=== PATIENT | female | born 1960 | race Asian ===

== ENCOUNTER 2022-12-02 14:33 | Emergency (ER) | payer OTHER ==
[2022-12-02] MEDS ORDERED: SODIUM CHLORIDE 0.9% 1,000 ML IV STA (17:08)
--- NOTE | 2022-12-02 17:11 | ED Physician Documentation ---
History of Present Illness - Stated complaint Stated Complaint: BODYACHES,CAMPBELL - Chief complaint Chief Complaint: General - History obtained from History obtained from: Patient, Family - History of Present Illness Timing: How many weeks ago (1) Pain level max: 0 Pain level now: 0 - Additonal information Additional information: 62-year-old female presents to the emergency department complaint of generalized malaise x1 week. Occasional chills. She states that she attempted [id number] medication without relief. She thought that she may have a bladder infection and took Azo. She states she has continued to feel tired and fatigued. She was seen at the walk-in clinic few days ago, negative COVID test. They told her she could be dehydrated and recommended she go to the ER if she does not feel better. Patient states she has not seen her primary care doctor in several years. She denies any medical history. She does smoke cigarettes and drinks about 4 beers per day. No abdominal pain. Did have vomiting last week, none this week. No cough. mild congestion. Review of Systems Constitutional: reports: Chills Ears: denies: Ear pain Throat: denies: Sore throat Respiratory: denies: Dyspnea, Wheezing GI: denies: Abdominal Pain, Diarrhea, Hematemesis, Bloody / black stool : reports: Dysuria (last week), Frequency Skin: denies: Rash Musculoskeletal: denies: Neck pain, Back pain Neurologic: denies: Headache PD PAST MEDICAL HISTORY - Past Medical History Past Medical History: No - Past Surgical History Past Surgical History: No - Present Medications Home Medications: Ambulatory Orders Medication Instructions Recorded Confirmed Cefdinir 300 mg PO BID #20 cap 12/02/22 - Allergies Allergies/Adverse Reactions: Allergies Allergy/AdvReac Type Severity Reaction Status Date / Time No Known Drug Allergies Allergy Verified 12/02/22 14:38 - Living Situation Living Situation: reports: With family Living Arrangement: reports: At home - Social History Does the pt smoke?: Yes Smoking Status: Current every day smoker Does the pt drink ETOH?: Yes - Family History Family history: reports: Non contributory PD ED PE NORMAL - Vitals Vital signs reviewed: Yes - General General: Alert and oriented X 3, No acute distress - HEENT HEENT: Ears normal, Moist mucous membranes, Pharynx benign - Neck Neck: Supple, no meningeal sign - Cardiac Cardiac: RRR, Strong equal pulses - Respiratory Respiratory: No respiratory distress, Clear bilaterally - Abdomen Abdomen: Soft, Non tender, Non distended - Back Back: No CVA TTP, No spinal TTP - Derm Derm: Warm and dry, No rash - Extremities Extremities: No edema, No calf tenderness / cord - Neuro Neuro: Alert and oriented X 3 - Psych Psych: Normal mood, Normal affect Results - Vitals Vitals: Vital Signs - 24 hr 12/02/22 12/02/22 12/02/22 14:38 18:17 19:41 Temperature 36.5 C 36.7 C Heart Rate 110 H 83 81 Respiratory 16 18 19 Rate Blood Pressure 160/80 H 134/68 H 128/64 O2 Saturation 98 98 100 Oxygen O2 Source Room air - Labs Labs: Laboratory Tests 12/02/22 12/02/22 12/02/22 16:26 17:31 17:57 WBC 14.5 H RBC 4.85 Hgb 14.3 Hct 42.4 MCV 87.4 MCH 29.5 MCHC 33.7 RDW 12.6 Plt Count 480 H MPV 10.0 Neut # (Auto) 12.1 H Lymph # (Auto) 1.4 L [place] # (Auto) 0.8 Eos # (Auto) 0.1 Baso # (Auto) 0.1 Absolute Nucleated RBC 0.00 Nucleated RBC % 0.0 Sodium 132 L Potassium 3.4 L Chloride 100 L Carbon Dioxide 22 Anion Gap 10.0 BUN 18 Creatinine 0.9 Estimated GFR (MDRD) 64 L Glucose 92 Calcium 8.4 L Total Bilirubin 0.9 AST 73 H ALT 137 H Alkaline Phosphatase 180 H Total Protein 7.1 Albumin 2.8 L Globulin 4.3 H Albumin/Globulin Ratio 0.7 L Lipase 39 Urine Color Urine Clarity Urine pH Ur Specific [place] Urine Protein Urine Glucose (UA) Urine Ketones Urine Occult Blood Urine Nitrite Urine Bilirubin Urine Urobilinogen Ur Leukocyte Esterase Urine RBC Urine WBC Ur Squamous Epith Cells Urine Bacteria Ur Microscopic Review Urine Culture Comments Nasal Adenovirus (PCR) NOT DETECTED Nasal B. parapertussis DNA (PCR) NOT DETECTED Nasal Coronavir 229E PCR NOT DETECTED Nasal Coronavir HKU1 PCR NOT DETECTED Nasal Coronavir NL63 PCR NOT DETECTED Nasal Coronavir OC43 PCR NOT DETECTED Nasal Enterovir/Rhinovir PCR NOT DETECTED Nasal Influenza B PCR NOT DETECTED Nasal Influenza A PCR NOT DETECTED Nasal Parainfluen 1 PCR NOT DETECTED Nasal Parainfluen 2 PCR NOT DETECTED Nasal Parainfluen 3 PCR NOT DETECTED Nasal Parainfluen 4 PCR NOT DETECTED Nasal RSV (PCR) NOT DETECTED Nasal B.pertussis DNA PCR NOT DETECTED Nasal C.pneumoniae (PCR) NOT DETECTED Nicholas Human Metapneumo PCR NOT DETECTED Nasal M.pneumoniae (PCR) NOT DETECTED Nasal SARS-CoV-2 (PCR) NOT DETECTED 12/02/22 18:27 WBC RBC Hgb Hct MCV MCH MCHC RDW Plt Count MPV Neut # (Auto) Lymph # (Auto) [place] # (Auto) Eos # (Auto) Baso # (Auto) Absolute Nucleated RBC Nucleated RBC % Sodium Potassium Chloride Carbon Dioxide Anion Gap BUN Creatinine Estimated GFR (MDRD) Glucose Calcium Total Bilirubin AST ALT Alkaline Phosphatase Total Protein Albumin Globulin Albumin/Globulin Ratio Lipase Urine Color DARK YELLOW Urine Clarity HAZY Urine pH 6.0 Ur Specific [place] 1.010 Urine Protein TRACE Urine Glucose (UA) NEGATIVE Urine Ketones 15 H Urine Occult Blood LARGE H Urine Nitrite NEGATIVE Urine Bilirubin NEGATIVE Urine Urobilinogen 1 (NORMAL) Ur Leukocyte Esterase LARGE H Urine RBC TNTC H Urine WBC >25 H Ur Squamous Epith Cells FEW Squamous Urine Bacteria Moderate H Ur Microscopic Review INDICATED Urine Culture Comments INDICATED Nasal Adenovirus (PCR) Nasal B. parapertussis DNA (PCR) Nasal Coronavir 229E PCR Nasal Coronavir HKU1 PCR Nasal Coronavir NL63 PCR Nasal Coronavir OC43 PCR Nasal Enterovir/Rhinovir PCR Nasal Influenza B PCR Nasal Influenza A PCR Nasal Parainfluen 1 PCR Nasal Parainfluen 2 PCR Nasal Parainfluen 3 PCR Nasal Parainfluen 4 PCR Nasal RSV (PCR) Nasal B.pertussis DNA PCR Nasal C.pneumoniae (PCR) Nicholas Human Metapneumo PCR Nasal M.pneumoniae (PCR) Nasal SARS-CoV-2 (PCR) - Rads (name of study) cxr Relevant Findings:: Final report received, See rad report PD Medical Decision Making - ED course Complexity details: reviewed results, re-evaluated patient, considered differential, d/w patient, d/w family ED course: Patient is well-appearing, nontoxic. Afebrile. No hypoxia. No respiratory distress. CBC shows a leukocytosis, 14,500. Chemistry shows a mild hyponatremia, does have elevation of her liver enzyme test, AST 73, ALT 137, alk phos 180. Urinalysis is consistent with UTI, there are white blood cells and bacteria present. Respiratory PCR is negative. Chest x-ray does not show any acute abnormalities. Given IV Rocephin. We will prescribe oral antibiotics for home. We will have her follow-up with a local primary care provider to have her liver function test rechecked and for her normal routine care. Tolerating p.o. without difficulty here. Ambulating without difficulty. No dyspnea. Patient counseled regarding signs and symptoms for which I believe and urgent re- evaluation would be necessary. Patient with good understanding of and agreement to plan and is comfortable going home at this time This document was made in part using voice recognition software. While efforts are made to proofread this document, sound alike and grammatical errors may occur. Departure - Departure Disposition: Home, Self Care Clinical Impression: Elevated liver function tests UTI (urinary tract infection) Qualifiers: Urinary tract infection type: acute cystitis Hematuria presence: without hematuria Qualified Code(s): N30.00 - Acute cystitis without hematuria Condition: Good Instructions: ED UTI Cystitis Female Follow-Up: [facility]] [facility]Provider [facility]] [facility] [Provider Group] Prescriptions: Cefdinir 300 mg PO BID #20 cap Comments: Please follow-up with a primary care provider. Please return if you worsen. You do have a bladder infection and were given a dose of IV antibiotics today. You also have elevation of your liver function test. It is important that these be rechecked with your doctor to ensure that they are returning to normal, if they do not you will need further testing with your doctor. Discharge Date/Time: 12/02/22 19:46
[2022-12-02 17:32] LABS: B. PARAPERTUSSIS- RESP PCR PAN NOT DETECTED; B. PERTUSSIS- RESP PCR PANEL NOT DETECTED; C. PNEUMONIAE- RESP PCR PANEL NOT DETECTED; CORONAVIRUS 229E-RESP PCR NOT DETECTED; CORONAVIRUS HKU1-RESP PCR NOT DETECTED; CORONAVIRUS NL63-RESP PCR NOT DETECTED; CORONAVIRUS OC43-RESP PCR NOT DETECTED; HUMAN METAPNEUMOVIRUS NOT DETECTED; INFLUENZA A- RESP PCR PANEL NOT DETECTED; INFLUENZA B - RESP PCR PANEL NOT DETECTED; M. PNEUMONIAE- RESP PCR PANEL NOT DETECTED; PARAINFLUENZA VIRUS 1 NOT DETECTED; PARAINFLUENZA VIRUS 2 NOT DETECTED; PARAINFLUENZA VIRUS 3 NOT DETECTED; PARAINFLUENZA VIRUS 4 NOT DETECTED; RHINOVIRUS/ENTEROVIRUS NOT DETECTED; RSV- RESP PCR PANEL NOT DETECTED; SARS-CoV-2 -RESP PCR PANEL NOT DETECTED
[2022-12-02 17:36] LABS: BASOPHILS # (AUTO) 0.1 10^3/uL (0.0-0.1); BASOPHILS % (AUTO) 0.5 %; EOSINOPHILS # (AUTO) 0.1 10^3/uL (0.0-0.7); EOSINOPHILS % (AUTO) 0.7 %; HCT - HEMATOCRIT 42.4 % (37.0-47.0); HGB - HEMOGLOBIN 14.3 g/dL (12.0-16.0); LYMPHOCYTES # (AUTO) 1.4 10^3/uL (1.5-3.5); LYMPHOCYTES % (AUTO) 9.6 %; MEAN CORPUSCULAR HEMOGLOBIN 29.5 pg (27.0-31.0); MEAN CORPUSCULAR HGB CONC 33.7 g/dL (32.0-36.0); MEAN CORPUSCULAR VOLUME 87.4 fL (81.0-99.0); MONOCYTES # (AUTO) 0.8 10^3/uL (0.0-1.0); MONOCYTES % (AUTO) 5.3 %; NEUTROPHILS # (AUTO) 12.1 10^3/uL (1.5-6.6); NEUTROPHILS % (AUTO) 83.1 %; PLT - PLATELET COUNT 480 10^3/uL (130-450); RED BLOOD COUNT 4.85 10^6/uL (4.20-5.40); RED CELL DISTRIBUTION WIDTH 12.6 % (12.0-15.0); WHITE BLOOD COUNT 14.5 x10^3/uL (4.8-10.8)
--- NOTE | 2022-12-02 17:57 | XRAY Report ---
PROCEDURE: Chest 2 View X-Ray INDICATIONS: cough TECHNIQUE: 2 views of the chest were acquired. COMPARISON: None. FINDINGS: Surgical changes and devices: None. Lungs and pleura: No pleural effusions or pneumothorax. Lungs are clear. Mediastinum: Mediastinal contours appear normal. Heart size is normal. Bones and chest wall: No suspicious bony lesions. Overlying soft tissues appear unremarkable. IMPRESSION: No acute cardiopulmonary process. Reviewed by: Marvin Medina MD on 12/02/2022 5:55 PM PDT Approved by: Marvin Medina MD on 12/02/2022 5:55 PM PDT Station ID: [id number]
[2022-12-02 18:15] LABS: ALBUMIN 2.8 g/dL (3.2-5.5); ALBUMIN/GLOBULIN RATIO 0.7 (1.0-2.2); BILIRUBIN,TOTAL 0.9 mg/dL (0.2-1.0); CALCIUM 8.4 mg/dL (8.5-10.3); CREATININE 0.9 mg/dL (0.4-1.0); POTASSIUM 3.4 mmol/L (3.5-5.0); TOTAL PROTEIN 7.1 g/dL (6.7-8.2)
[2022-12-02 18:42] LABS: BILIRUBIN,URINE NEGATIVE (NEGATIVE); GLUCOSE, URINE (UA) NEGATIVE (NEGATIVE); KETONES,URINE (UA) 15 mg/dL (NEGATIVE); LEUKOCYTE ESTERASE, URINE LARGE (NEGATIVE); NITRITE,URINE NEGATIVE (NEGATIVE); OCCULT BLOOD,URINE LARGE (NEGATIVE); PROTEIN,URINE TRACE mg/dL (NEGATIVE); UROBILINOGEN,URINE 1 (NORMAL) E.U./dL (NORMAL)
[2022-12-02 18:45] LABS: CLARITY,URINE HAZY (CLEAR)
[2022-12-02 18:54] LABS: BACTERIA,URINE Moderate /HPF (None Seen); RBC,URINE TNTC /HPF (0-5); SQUAMOUS EPITHELIAL CELL,UR FEW Squamous (<= Few); WBC,URINE >25 /HPF (0-5)
[2022-12-02] MEDS ORDERED: cefTRIAXone 1 GM VIAL IVP STA (19:22)
[2022-12-02 19:42] VITALS: BP 128/64
== END 2022-12-02 19:46 | disposition home or self-care (01) ==
LOC: ED 14:33
DX: N30.00 Acute cystitis without hematuria (principal); R94.5 Abnormal results of liver function studies; F17.200 Nicotine dependence, unspecified, uncomplicated; Z20.822 Contact with and (suspected) exposure to COVID-19
CPT/HCPCS: 36415; 80053; 81001; 81003; 83690; 85025; 87077; 87086; 87181; 87633; 96361; 96374; 99284

== ENCOUNTER 2023-03-05 13:34 | Outpatient (CLI) | payer OTHER ==
--- NOTE | 2023-03-05 20:58 | CT Report ---
PROCEDURE: Low Dose Lung Cancer Screen INDICATIONS: SMOKER TECHNIQUE: A CT scan of the chest was performed. Intravenous contrast media was not administered. Images were re corded and evaluated at appropriate window settings. Reformats: axial MIP of the chest, coronal and s agittal. For radiation dose reduction, the following was used: automated exposure control, adjustment of mA and/or kV according to patient size. COMPARISON: Chest radiograph dated 12/02/2022 FINDINGS: Image quality: Excellent. Prior cancer history: Unsure. Lungs and pleura: No pleural effusions. No pneumothorax. No suspicious pulmonary nodules which requi re follow up. Mild upper lobe predominant pulmonary emphysematous changes. Mediastinum: Heart size is normal. Scattered atherosclerotic calcifications of the coronary arteries. Atherosclerosis of the aortic arch. No pericardial effusion. No large vessel abnormality. No mediast inal adenopathy by size criteria. Chest wall and lower neck: Thyroid is unremarkable. No axillary or supraclavicular adenopathy by size . Bones: No aggressive osseous abnormality. Upper Abdomen: Unremarkable. IMPRESSION: CT chest without acute cardiopulmonary abnormalities. Mild upper lobe predominant pulmona ry emphysema. No suspicious pulmonary nodules. Lung RAD: 1 - Negative. Recommendation: Continue annual screening in 12 Months with LDCT Non-Lung Significant Findings: Coronary Arterial Calcification - Moderate or Severe. Reviewed by: Lamine Moran MD on 03/05/2023 7:57 PM HALLIE Approved by: Lamine Moran MD on 03/05/2023 7:57 PM HALLIE Station ID: [id number]
== END 2023-03-05 13:35 | disposition home or self-care (01) ==
LOC: DI 13:34
PROVIDERS: ATTEND Physician Assistant
DX: Z12.2 Encounter for screening for malignant neoplasm of respiratory organs (principal); F17.210 Nicotine dependence, cigarettes, uncomplicated; J43.9 Emphysema, unspecified

== ENCOUNTER 2023-06-03 10:57 | Day surgery (SDC) | payer OTHER ==
[2023-06-03] MEDS ORDERED: LACTATED RINGERS 1,000 ML IV ONE ×2 (11:06→13:42)
[2023-06-03] MEDS ORDERED: BUPIVACAINE 0.25% PF 30 ML VIAL ONE (12:01)
[2023-06-03] MEDS ORDERED: LIDOCAINE 1%-EPI 1:100000 20 ML MDV ONE (12:01)
[2023-06-03] MEDS ORDERED: ATROPINE ABBOJECT 1 MG/10 ML SYRINGE IVP PRN (12:04)
[2023-06-03] MEDS ORDERED: NALOXONE 0.4 MG/ML VIAL IVP PRN (12:04)
[2023-06-03] MEDS ORDERED: HYDROmorphone 0.5 MG/0.5 ML SYRINGE IVP PRN (12:04)
[2023-06-03] MEDS ORDERED: ONDANSETRON 4 MG/2 ML VIAL IVP PRN ×2 (12:04→13:53)
[2023-06-03] MEDS ORDERED: ePHEDrine 50 MG/ML VIAL IVP PRN (12:04)
[2023-06-03] MEDS ORDERED: fentaNYL 100 MCG/2 ML VIAL IVP PRN (12:04)
--- NOTE | 2023-06-03 12:04 | ANESTHESIA ---
Pre-Anesthesia VS, & Labs - Diagnosis vulva cancer - Procedure portacath Height: 5 ft 2 in Weight (kg): 49 kg Body Mass Index: 19.8 BMI Classification: Normal - NPO >8 hours - Is Patient ?: No - Lab Results Lab results reviewed: Yes Home Medications and Allergies Lidocaine/Prilocain 2.5% Cream [Emla 2.5% Cream] 1 applic TOP PRN PRN 06/03/23 Ondansetron HCl 4 mg PO Q4H PRN 06/03/23 Prochlorperazine Maleate [Compazine] 10 mg PO Q4H PRN 06/03/23 Allergies/Adverse Reactions: Allergies Allergy/AdvReac Type Severity Reaction Status Date / Time No Known Drug Allergies Allergy Verified 05/26/23 16:41 Anes History & Medical History - Anesthetic History Anesthesia Complications: reports: No previous complications Family history of Anesthesia Complications: Denies - Medical History Cardiovascular: reports: None Pulmonary: reports: None Gastrointestinal: reports: None Urinary: reports: None Neuro: reports: None Musculoskeletal: reports: None Endocrine/Autoimmune: reports: None Blood Disorders: reports: None Skin: reports: None Smoking Status: Current every day smoker Psychosocial: reports: Cannabis History of Cancer?: Yes - Surgical History Gynecologic: reports: Other Dermatologic: reports: Other Exam General: Alert, Oriented x3, Cooperative Dental: Dentures full Upper, Dentures full Lower Mouth Openin Fingerbreadth Neck Mobility: Normal Mallampati classification: II Thyromental Distance: 4-6 cm Respiratory: Lungs clear Cardiovascular: Regular rate Plan Anesthesia Type: General, MAC Consent for Procedure(s) Verified and Reviewed: Yes Code Status: Attempt Resuscitation ASA classification: 3-Severe systemic disease Is this case an emergency?: No
[2023-06-03] MEDS ORDERED: PROPOFOL 500 MG/50 ML 500 MG/50 ML VIAL ONE (12:16)
--- NOTE | 2023-06-03 12:40 | HISTORY & PHYSICAL EXAMINATION ---
Chief Complaint - Chief Complaint Chief Complaint: here for port placement History of Present Illness - History Obtained From Records Reviewed: yes History obtained from: pt Exam Limitations: none - History of Present Illness HPI Comment/Other: history cancer vulva. chemotherapy and port recommended History - Past Medical History Cardiovascular: reports: None Respiratory: reports: None Neuro: reports: None Endocrine/Autoimmune: reports: None GI: reports: None : reports: None HEENT: reports: Glaucoma Psych: reports: None Musculoskeletal: reports: None Derm: reports: None MRSA Hx?: Yes - Past Surgical History /DISINTEGRATOR: reports: Other Derm: reports: Other - Family & Social History Living Situation: With family Meds/Allgy - Home Medications Home Medications: Ambulatory Orders Medication Instructions Recorded Confirmed Cefdinir 300 mg PO BID #20 cap 12/02/22 06/03/23 oxyCODONE [Roxicodone] 5 mg PO Q4H PRN #180 tablet 05/25/23 06/03/23 Lidocaine/Prilocain 2.5% Cream 1 applic TOP PRN PRN 06/03/23 06/03/23 [Emla 2.5% Cream] Ondansetron HCl 4 mg PO Q4H PRN 06/03/23 06/03/23 Prochlorperazine Maleate 10 mg PO Q4H PRN 06/03/23 06/03/23 [Compazine] - Allergies Allergies/Adverse Reactions: Allergies Allergy/AdvReac Type Severity Reaction Status Date / Time No Known Drug Allergies Allergy Verified 05/26/23 16:41 Review of Systems - Other Findings Other Findings: 10 pt ros as above otherwise unremarkable Exam - Physical Exam General Appearance: positive: No acute distress, Alert Eyes Bilateral: positive: PERRL, EOMI ENT: positive: No signs of dehydration Neck: positive: No JVD, Trachea midline Respiratory: positive: No respiratory distress Cardiovascular: positive: Regular rate & rhythm Abdomen: positive: No distention Neurologic/Psychiatric: positive: Oriented x3 Conclusion/Plan - Problem List (1) Cancer of vulva Conclusion/Plan: plan port placement. parq held and consent obtained - Lab Results Lab results reviewed: Yes
[2023-06-03] MEDS ORDERED: MIDAZOLAM 2 MG/2 ML VIAL ONE (12:48)
[2023-06-03] MEDS ORDERED: fentaNYL 100 MCG/2 ML VIAL ONE (12:48)
[2023-06-03] MEDS ORDERED: LACTATED RINGERS 1,000 ML IV SCH (13:00)
[2023-06-03] MEDS ORDERED: ceFAZolin 1 GM VIAL ONE (13:03)
[2023-06-03] MEDS ORDERED: GLYCOPYRROLATE 1 MG/5 ML VIAL ONE (13:07)
[2023-06-03] MEDS ORDERED: SODIUM CHLORIDE 0.9% 100 ML BAG IV ONE (13:10)
[2023-06-03] MEDS ORDERED: BUPIVACAINE 0.25% PF 30 ML VIAL SUBQ ONE ×2 (13:10)
[2023-06-03] MEDS ORDERED: LIDOCAINE 1%-EPI 1:100000 20 ML MDV SUBQ ONE ×2 (13:11)
[2023-06-03 13:48] VITALS: O2SAT 100
[2023-06-03] MEDS ORDERED: HYDROcod/ACETAM 5/325 MG TABLET PO PRN (13:53)
--- NOTE | 2023-06-03 13:58 | OPERATIVE REPORT ---
Operative Report - General Procedure Date: 06/03/23 Planned Procedure: left subclavian power port placement Pre-Op Diagnosis: vulva cancer Procedure Performed: left subclavian power port placement fluoroscopic guidance - Procedure Note Primary Surgeon: rock xiao Anesthesia Technique: Local, MAC Estimated Blood Loss (mL): 2 Drain/Tube Type: Other (none) Indications: need for chemotherapy Findings: tip at svc/ atrium junction. good flush and flow Complications: none - Other Other Information/Narrative: The patient was properly identified brought to the operating room and placed in supine position. Monitored anesthesia care was given as well as IV sedation. A towel roll was placed under the upper back. The patient was prepped and draped in a sterile fashion and given preoperative antibiotics. Local anesthetic was given. The left subclavian vein was easily accessed second pass with a needle. Guide wire placed and position confirmed. A subcutaneous pocket on the left upper chest was created measuring approximately 2-1/2 cm. Portacatheter tubing was then placed subcutaneous up to the venous access point. The portacatheter tubing was then easily placed with the use of a dilator peel-away sheath. The tubing was aspirated and flushed with saline. Under fluoroscopic guidance the tubing was pulled back to the junction of the atrium and the superior vena cava. The portacatheter aspirated and flushed easily assuring good position. The portacatheter was then cut to size and further assembled. The port was secured to subcutaneous tissue with 2 interrupted 4-0 Prolene sutures. The port again was aspirated and flushed now with heparin. Buried interrupted subdermal 3-0 Vicryl sutures were then placed. Skin was closed with buried interrupted and running 4-0 Monocryl subcuticular suture. Dressing was applied. The patient tolerated the procedure well was awakened and brought to recovery in good condition.
--- NOTE | 2023-06-03 14:27 | XRAY Report ---
PROCEDURE: OR Port-A-Cath INDICATIONS: PORT-A-CATH PLACEMENT FLUORO TIME: 000.8 TECHNIQUE: Real time fluoroscopy was performed of the thorax. COMPARISON: None. FINDINGS: An intraoperative fluoroscopic image was obtained. A left sided catheter is present with tip likely p rojecting over the lower SVC. IMPRESSION: Intraprocedural fluoroscopy was provided for guidance and anatomic localization. Please see the proc edure report for further details. Reviewed by: Marvin Swenson MD on 06/03/2023 2:26 PM PDT Approved by: Marvin Swenson MD on 06/03/2023 2:26 PM PDT Station ID: [id number]
[2023-06-03 14:44] VITALS: BP 170/68
--- NOTE | 2023-06-03 15:44 | ANESTHESIA POST OP EVALUATION ---
Anesthesia Post Eval - Post Anesthesia Eval Vitals: Last Vital Signs Temp 36.3 C L 06/03/23 14:30 Pulse 69 06/03/23 14:30 Resp 16 06/03/23 14:30 BP 170/68 H 06/03/23 14:30 Pulse Ox 100 06/03/23 14:30 O2 Flow Rate CV Function Including HR & BP: Stable Pain Control: Satisfactory Nausea & Vomiting: Negative Mental Status: Baseline Respiratory Status: Airway Patent Hydration Status: Satisfactory Anesthesia Complications: None
== END 2023-06-03 10:58 | disposition home or self-care (01) ==
LOC: SDS 10:57
PROVIDERS: ATTEND Surgery
DX: C51.9 Malignant neoplasm of vulva, unspecified (principal); F17.200 Nicotine dependence, unspecified, uncomplicated
CPT/HCPCS: 36561; C1788; J7120

== ENCOUNTER 2023-11-02 08:00 | Outpatient (CLI) | payer OTHER | END 2023-11-02 23:59 | disposition home or self-care (01) | LOC: PC 08:00 | PROVIDERS: ATTEND Nurse Practitioner Adult Health | DX: Z51.5 Encounter for palliative care (principal); G89.3 Neoplasm related pain (acute) (chronic); Z79.891 Long term (current) use of opiate analgesic; Z79.899 Other long term (current) drug therapy; R63.0 Anorexia; R53.1 Weakness; R63.4 Abnormal weight loss; R06.02 Shortness of breath; R32 Unspecified urinary incontinence; I10 Essential (primary) hypertension; R53.83 Other fatigue; K59.03 Drug induced constipation; T40.2X5A Adverse effect of other opioids, initial encounter; C51.9 Malignant neoplasm of vulva, unspecified; C77.8 Secondary and unspecified malignant neoplasm of lymph nodes of multiple regions; F17.200 Nicotine dependence, unspecified, uncomplicated | CPT/HCPCS: 99215 ==

== ENCOUNTER 2023-12-07 08:00 | Outpatient (CLI) | payer OTHER | END 2023-12-07 23:59 | disposition home or self-care (01) | LOC: PC 08:00 | PROVIDERS: ATTEND Nurse Practitioner Adult Health | DX: Z51.5 Encounter for palliative care (principal); G89.3 Neoplasm related pain (acute) (chronic); C51.9 Malignant neoplasm of vulva, unspecified; C77.4 Secondary and unspecified malignant neoplasm of inguinal and lower limb lymph nodes; C77.5 Secondary and unspecified malignant neoplasm of intrapelvic lymph nodes; M60.9 Myositis, unspecified; F17.200 Nicotine dependence, unspecified, uncomplicated; F41.9 Anxiety disorder, unspecified; R30.0 Dysuria; I10 Essential (primary) hypertension; R63.0 Anorexia; F32.A Depression, unspecified | CPT/HCPCS: 99215 ==

== ENCOUNTER → 2023-12-28 | Outpatient (CLI) | payer OTHER | LOC: PC 08:00 | PROVIDERS: ATTEND Nurse Practitioner Adult Health | DX: Z51.5 Encounter for palliative care (principal); G89.3 Neoplasm related pain (acute) (chronic); C51.9 Malignant neoplasm of vulva, unspecified; F41.9 Anxiety disorder, unspecified; C77.4 Secondary and unspecified malignant neoplasm of inguinal and lower limb lymph nodes; C79.51 Secondary malignant neoplasm of bone; N76.0 Acute vaginitis; F32.A Depression, unspecified; Z87.891 Personal history of nicotine dependence | CPT/HCPCS: 99215 ==

== ENCOUNTER 2024-01-04 08:00 | Outpatient (CLI) | payer OTHER | END 2024-01-04 23:59 | disposition home or self-care (01) | LOC: PC 08:00 | PROVIDERS: ATTEND Nurse Practitioner Adult Health | DX: Z51.5 Encounter for palliative care (principal); G89.3 Neoplasm related pain (acute) (chronic); C51.9 Malignant neoplasm of vulva, unspecified; C77.8 Secondary and unspecified malignant neoplasm of lymph nodes of multiple regions; Z51.81 Encounter for therapeutic drug level monitoring; F41.9 Anxiety disorder, unspecified; I10 Essential (primary) hypertension | CPT/HCPCS: 99215 ==

== ENCOUNTER 2024-01-18 08:00 | Outpatient (CLI) | payer OTHER | END 2024-01-18 23:59 | disposition home or self-care (01) | LOC: PC 08:00 | PROVIDERS: ATTEND Nurse Practitioner Adult Health | DX: Z51.5 Encounter for palliative care (principal); G89.3 Neoplasm related pain (acute) (chronic); N76.0 Acute vaginitis; Z79.60 Long term (current) use of unspecified immunomodulators and immunosuppressants; R33.9 Retention of urine, unspecified; F41.9 Anxiety disorder, unspecified | CPT/HCPCS: 99215 ==

== ENCOUNTER 2024-02-08 10:40 | Outpatient (CLI) | payer OTHER | END 2024-02-08 23:59 | disposition home or self-care (01) | LOC: PC 10:40 | PROVIDERS: ATTEND Nurse Practitioner Adult Health | DX: Z51.5 Encounter for palliative care (principal); C51.9 Malignant neoplasm of vulva, unspecified; C77.4 Secondary and unspecified malignant neoplasm of inguinal and lower limb lymph nodes; C77.5 Secondary and unspecified malignant neoplasm of intrapelvic lymph nodes; G89.3 Neoplasm related pain (acute) (chronic); R63.4 Abnormal weight loss; F41.9 Anxiety disorder, unspecified; M60.9 Myositis, unspecified; Z68.1 Body mass index [BMI] 19.9 or less, adult; Z79.899 Other long term (current) drug therapy | CPT/HCPCS: 99215 ==

== ENCOUNTER 2024-02-22 08:00 | Outpatient (CLI) | payer OTHER | END 2024-02-22 23:59 | disposition home or self-care (01) | LOC: PC 08:00 | PROVIDERS: ATTEND Nurse Practitioner Adult Health | DX: Z51.5 Encounter for palliative care (principal); G89.3 Neoplasm related pain (acute) (chronic); R19.7 Diarrhea, unspecified; C51.9 Malignant neoplasm of vulva, unspecified; C77.4 Secondary and unspecified malignant neoplasm of inguinal and lower limb lymph nodes; C77.5 Secondary and unspecified malignant neoplasm of intrapelvic lymph nodes; F41.9 Anxiety disorder, unspecified; R63.4 Abnormal weight loss; Z68.1 Body mass index [BMI] 19.9 or less, adult; Z71.89 Other specified counseling | CPT/HCPCS: 99215 ==

== ENCOUNTER 2024-02-29 09:15 | Outpatient (CLI) | payer OTHER | END 2024-02-29 23:59 | disposition home or self-care (01) | LOC: PC 09:15 | PROVIDERS: ATTEND Nurse Practitioner Adult Health | DX: Z51.5 Encounter for palliative care (principal); C51.9 Malignant neoplasm of vulva, unspecified; C77.4 Secondary and unspecified malignant neoplasm of inguinal and lower limb lymph nodes; C77.5 Secondary and unspecified malignant neoplasm of intrapelvic lymph nodes; R19.7 Diarrhea, unspecified; F41.9 Anxiety disorder, unspecified; G89.3 Neoplasm related pain (acute) (chronic); R63.4 Abnormal weight loss; Z68.1 Body mass index [BMI] 19.9 or less, adult | CPT/HCPCS: 99215 ==

== ENCOUNTER 2024-03-06 08:00 | Outpatient (CLI) | payer OTHER | END 2024-03-06 23:59 | disposition home or self-care (01) | LOC: PC 08:00 | PROVIDERS: ATTEND Nurse Practitioner Adult Health | DX: Z51.5 Encounter for palliative care (principal); C51.9 Malignant neoplasm of vulva, unspecified; C77.4 Secondary and unspecified malignant neoplasm of inguinal and lower limb lymph nodes; C77.5 Secondary and unspecified malignant neoplasm of intrapelvic lymph nodes; G89.3 Neoplasm related pain (acute) (chronic); R19.7 Diarrhea, unspecified; E87.1 Hypo-osmolality and hyponatremia; F41.9 Anxiety disorder, unspecified; R63.4 Abnormal weight loss; E86.0 Dehydration; R11.2 Nausea with vomiting, unspecified; T45.1X5A Adverse effect of antineoplastic and immunosuppressive drugs, initial encounter; Z02.89 Encounter for other administrative examinations; Z68.1 Body mass index [BMI] 19.9 or less, adult | CPT/HCPCS: 99215 ==

== ENCOUNTER 2024-03-09 13:34 | Outpatient (CLI) | payer OTHER | END 2024-03-09 23:59 | disposition critical access hospital (66) | LOC: EMS 13:34 | DX: R53.1 Weakness (principal); R53.83 Other fatigue; I95.9 Hypotension, unspecified; R00.0 Tachycardia, unspecified; G89.3 Neoplasm related pain (acute) (chronic) | CPT/HCPCS: A0425; A0427 ==

== ENCOUNTER 2024-03-09 14:12 | Emergency (ER) | payer OTHER ==
--- NOTE | 2024-03-09 14:24 | ED Physician Documentation ---
History of Present Illness - Stated complaint Stated Complaint: LETHARGIC - History obtained from History obtained from: Patient - Additonal information Additional information: The patient is brought to the emergency department by EMS for chief complaint of weakness and exhaustion after receiving chemotherapy on Tuesday which was 3 days ago. The patient has a period like this after each chemotherapy session but it does seem to get longer each time. She has had to come in for IV fluids before and her called EMS because he felt that she was probably dehydrated. The patient denies vomiting but she does have some abdominal cramping which she states usually precedes onset of diarrhea, which she has been having since being on chemo. She believes she has lymphoma as her primary cancer. Patient denies any fevers or chills. No other complaints at this time. PD PAST MEDICAL HISTORY - Past Medical History Cardiovascular: None Respiratory: None Neuro: None Endocrine/Autoimmune: None GI: None : None HEENT: Glaucoma Psych: None Musculoskeletal: None Derm: None - Past Surgical History Past Surgical History: No /TIRE CHANGER: Other Derm: Other - Present Medications Home Medications: Ambulatory Orders Medication Instructions Recorded Confirmed Cefdinir 300 mg PO BID #20 cap 12/02/22 03/09/24 Lidocaine/Prilocain 2.5% Cream 1 applic TOP PRN PRN 06/03/23 03/09/24 [Emla 2.5% Cream] Ondansetron HCl 4 mg PO Q4H PRN 06/03/23 03/09/24 Prochlorperazine Maleate 10 mg PO Q4H PRN 06/03/23 03/09/24 [Compazine] oxyCODONE [Roxicodone] 5 mg PO Q6H PRN #180 tablet 06/29/23 03/09/24 predniSONE [Deltasone] 40 mg PO DAILY #14 tab 11/02/23 03/09/24 OLANZapine [Olanzapine] 5 mg PO DAILY 4 Days #4 tablet 03/06/24 03/09/24 Morphine ER 60 mg PO TID 03/09/24 03/09/24 Potassium Chloride 8 meq PO DAILY 03/09/24 03/09/24 oxyCODONE [Roxicodone] 10 mg PO Q4H PRN 03/09/24 03/09/24 - Allergies Allergies/Adverse Reactions: Allergies Allergy/AdvReac Type Severity Reaction Status Date / Time No Known Drug Allergies Allergy Verified 03/09/24 14:36 - Social History Does the pt smoke?: Yes Smoking Status: Current every day smoker Does the pt drink ETOH?: Yes PD ED PE NORMAL - Vitals Vital signs reviewed: Yes - General General: No acute distress, Well developed/nourished, Other (The patient lays with her eyes closed on the bed but does actually answer questions appropriately. She appears gaunt and chronically ill.) - HEENT HEENT: Atraumatic, PERRL, EOMI, Moist mucous membranes - Neck Neck: Supple, no meningeal sign - Cardiac Cardiac: RRR, No murmur - Respiratory Respiratory: No respiratory distress, Clear bilaterally - Abdomen Abdomen: Soft, Non tender, Non distended - Derm Derm: Warm and dry, No rash - Extremities Extremities: No deformity, No edema - Neuro Neuro: Other (Awake, answers questions appropriately, no gross deficits.) - Psych Psych: Normal mood, Normal affect Results - Vitals Vitals: Vital Signs - 24 hr 03/09/24 14:30 Temperature 36.9 C Heart Rate 100 Respiratory 18 Rate Blood Pressure 115/66 O2 Saturation 98 Oxygen O2 Source Room air - Labs Labs: Laboratory Tests 03/09/24 03/09/24 14:33 14:33 WBC 9.3 RBC 4.57 Hgb 13.1 Hct 39.7 MCV 86.9 MCH 28.7 MCHC 33.0 RDW 15.7 H Plt Count 358 MPV 9.4 Neut # (Auto) 8.2 H Lymph # (Auto) 0.8 L [place] # (Auto) 0.3 Eos # (Auto) 0.0 Baso # (Auto) 0.0 Absolute Nucleated RBC 0.00 Nucleated RBC % 0.0 Sodium 133 L Potassium 3.5 Chloride 99 L Carbon Dioxide 21 Anion Gap 13.0 BUN 15 Creatinine 0.6 Estimated GFR (MDRD) 102 Glucose 76 Calcium 8.6 Total Bilirubin 1.3 H AST 16 ALT 12 Alkaline Phosphatase 72 Total Protein 6.7 Albumin 3.5 Globulin 3.2 Albumin/Globulin Ratio 1.1 Lipase 15 PD Medical Decision Making - ED course Complexity details: reviewed results, re-evaluated patient, considered differential, d/w patient ED course: The patient was treated with IV fluids and worked up with labs. The patient had received a liter of IV fluid from EMS and also received a second liter here in the emergency department. Her vital signs were stable and normal and her labs were unremarkable. I spoke with her , who stated that she went through the same thing last week after her chemo and she is hard because her period of exhaustion is just lasting longer and longer with each set of chemo. The patient is preparing for radiation and so her chemotherapy treatments have become more frequent according to the . I did also speak with palliative care nurse and they did send some records from the patient. The patient complained of low back pain while in the ED and was given a dose of Dilaudid here for that. I discussed with the that at this point, I do not know that we are going to be able to get the patient much better than she is is I think most of this is simply the effect of the chemotherapy and the drain on her body from this. The patient does not really meet any admission criteria and I have discussed with the thatWe will probably send the patient home. She does have a standing order at the [facility] for IV fluid infusion according to the and so she can also get IV fluids in this way. just states she seemed worse today than she was last week and that he was not sure she would tolerate the car ride up here and that is why he called EMS. The patient was given a dose of Dilaudid for her back pain and this did improve her pain. Departure - Departure Disposition: 01 Home, Self Care Clinical Impression: Generalized weakness, Dehydration Condition: Stable Instructions: ED Dehydration, ED Weakness UKO, Nutrition Chemo Comments: Your vital signs and labs actually look very good today. We have treated you with 2 L total of saline solution via IV, so you have been hydrated. Unfortunately, because of the nature of chemotherapy, there is not a lot we can do to take away the sense of deep fatigue that you are feeling. This mostly just has to be waited out until your body recovers. Please continue to work with your cancer care and palliative care teams to deal with the symptoms and to decide what is the best course of action and approaching your cancer and associated issues.
[2024-03-09 14:38] LABS: BASOPHILS % (AUTO) 0.2 %; EOSINOPHILS % (AUTO) 0.1 %; HCT - HEMATOCRIT 39.7 % (37.0-47.0); HGB - HEMOGLOBIN 13.1 g/dL (12.0-16.0); LYMPHOCYTES # (AUTO) 0.8 10^3/uL (1.5-3.5); LYMPHOCYTES % (AUTO) 8.5 %; MEAN CORPUSCULAR HEMOGLOBIN 28.7 pg (27.0-31.0); MEAN CORPUSCULAR VOLUME 86.9 fL (81.0-99.0); MEAN PLATELET VOLUME 9.4 fL (7.9-10.8); MONOCYTES # (AUTO) 0.3 10^3/uL (0.0-1.0); MONOCYTES % (AUTO) 2.9 %; NEUTROPHILS # (AUTO) 8.2 10^3/uL (1.5-6.6); NEUTROPHILS % (AUTO) 87.9 %; PLT - PLATELET COUNT 358 10^3/uL (130-450); RED BLOOD COUNT 4.57 10^6/uL (4.20-5.40); RED CELL DISTRIBUTION WIDTH 15.7 % (12.0-15.0); WHITE BLOOD COUNT 9.3 x10^3/uL (4.8-10.8)
[2024-03-09] MEDS: SODIUM CHLORIDE 0.9% 1,000 ML IV STA ×2 (14:39→17:04)
[2024-03-09 14:52] LABS: ALBUMIN 3.5 g/dL (3.2-5.5); ALBUMIN/GLOBULIN RATIO 1.1 (1.0-2.2); BILIRUBIN,TOTAL 1.3 mg/dL (0.2-1.0); CALCIUM 8.6 mg/dL (8.5-10.3); CREATININE 0.6 mg/dL (0.6-1.3); POTASSIUM 3.5 mmol/L (3.5-4.5); TOTAL PROTEIN 6.7 g/dL (6.4-8.9)
[2024-03-09] MEDS: HYDROmorphone 0.5 MG/0.5 ML SYRINGE IVP STA (16:40)
[2024-03-09 18:09] VITALS: BP 99/67; O2SAT 99
== END 2024-03-09 18:02 | disposition home or self-care (01) ==
LOC: EDUNIT# → ED 14:12
DX: E86.0 Dehydration (principal); R53.1 Weakness; F17.200 Nicotine dependence, unspecified, uncomplicated; Z79.899 Other long term (current) drug therapy
CPT/HCPCS: 36415; 80053; 83690; 85025; 96361; 96374; 99283; J1170

== ENCOUNTER 2024-03-13 08:00 | Outpatient (CLI) | payer OTHER | END 2024-03-13 23:59 | disposition home or self-care (01) | LOC: PC 08:00 | PROVIDERS: ATTEND Nurse Practitioner Adult Health | DX: Z51.5 Encounter for palliative care (principal); C51.9 Malignant neoplasm of vulva, unspecified; C77.4 Secondary and unspecified malignant neoplasm of inguinal and lower limb lymph nodes; C79.51 Secondary malignant neoplasm of bone; G89.3 Neoplasm related pain (acute) (chronic) | CPT/HCPCS: 99215 ==

== ENCOUNTER 2024-03-27 08:00 | Outpatient (CLI) | payer OTHER | END 2024-03-27 23:59 | disposition home or self-care (01) | LOC: PC 08:00 | PROVIDERS: ATTEND Nurse Practitioner Adult Health | DX: Z51.5 Encounter for palliative care (principal); C51.9 Malignant neoplasm of vulva, unspecified; C77.8 Secondary and unspecified malignant neoplasm of lymph nodes of multiple regions; G89.3 Neoplasm related pain (acute) (chronic); N82.5 Female genital tract-skin fistulae; R25.1 Tremor, unspecified; F41.9 Anxiety disorder, unspecified; L60.0 Ingrowing nail; R53.83 Other fatigue; Z79.630 Long term (current) use of alkylating agent; Z79.633 Long term (current) use of mitotic inhibitor; Z79.891 Long term (current) use of opiate analgesic; Z79.899 Other long term (current) drug therapy; Z79.52 Long term (current) use of systemic steroids; Z59.9 Problem related to housing and economic circumstances, unspecified | CPT/HCPCS: 99215 ==

== ENCOUNTER 2024-04-10 08:00 | Outpatient (CLI) | payer OTHER | END 2024-04-10 23:59 | disposition home or self-care (01) | LOC: PC 08:00 | PROVIDERS: ATTEND Nurse Practitioner Adult Health | DX: Z51.5 Encounter for palliative care (principal); C51.9 Malignant neoplasm of vulva, unspecified; C77.4 Secondary and unspecified malignant neoplasm of inguinal and lower limb lymph nodes; C77.5 Secondary and unspecified malignant neoplasm of intrapelvic lymph nodes; N82.5 Female genital tract-skin fistulae; G89.3 Neoplasm related pain (acute) (chronic); R63.4 Abnormal weight loss; T40.2X5A Adverse effect of other opioids, initial encounter; K59.03 Drug induced constipation; F41.9 Anxiety disorder, unspecified; Z68.1 Body mass index [BMI] 19.9 or less, adult; Z71.89 Other specified counseling | CPT/HCPCS: 99215 ==

== ENCOUNTER 2024-04-19 08:00 | Outpatient (CLI) | payer OTHER | END 2024-04-19 23:59 | disposition home or self-care (01) | LOC: PC 08:00 | PROVIDERS: ATTEND Nurse Practitioner Adult Health | DX: Z51.5 Encounter for palliative care (principal); G89.3 Neoplasm related pain (acute) (chronic); C51.9 Malignant neoplasm of vulva, unspecified; N82.5 Female genital tract-skin fistulae; R63.4 Abnormal weight loss | CPT/HCPCS: 99215 ==